=== PATIENT | female | born 1950 | race Caucasian/White ===

== ENCOUNTER 2023-09-10 16:56 | Emergency (ER) | payer MEDICARE, OTHER ==
[~2023-09-10] VITALS: Ht 157.5 cm; Wt 81.8 kg
[2023-09-10 17:11] VITALS: TEMP 98.2
[2023-09-10] MEDS ORDERED: LISI1TAB53 PO (17:11)
[2023-09-10] MEDS ORDERED: ATOR20TA65 PO (17:11)
[2023-09-10] MEDS ORDERED: COLC0.6C3 PO (17:11)
[2023-09-10] MEDS ORDERED: DEXL60CA6 PO (17:11)
[2023-09-10 17:44] LABS: BASOPHILS % (AUTO) 1.3 % (0.0-2.0); EOSINOPHILS % (AUTO) 0.7 % (1.0-6.0); HEMATOCRIT 38.4 % (36-46); HEMOGLOBIN 13.1 g/dL (12.0-16.0); LYMPHOCYTES # (AUTO) 1.6 K/uL (1.0-4.8); LYMPHOCYTES % (AUTO) 21.5 % (22.0-44.0); MEAN CORPUSCULAR HEMOGLOBIN 28.2 pg (26.0-34.0); MEAN CORPUSCULAR VOLUME 83 fL (80-100); MONOCYTES # (AUTO) 0.5 K/uL (0.1-1.0); MONOCYTES % (AUTO) 6.8 % (2.0-9.0); NEUTROPHILS # (AUTO) 5.3 K/uL (1.8-7.7); NEUTROPHILS % (AUTO) 69.7 % (40.0-70.0); PLATELET COUNT (AUTO) 334 K/uL (150-450); RED BLOOD CELL COUNT(AUTO) 4.64 MIL/uL (4.00-5.20); RED CELL DISTRIBUTION WIDTH 14.5 % (11.5-14.5); WHITE BLOOD COUNT (AUTO) 7.6 K/uL (4.5-11.0)
[2023-09-10 17:58] LABS: CALCIUM, TOTAL 9.5 mg/dL (8.8-10.5); CREATININE 0.92 mg/dL (0.60-1.30); POTASSIUM 4.1 mmol/L (3.5-5.1)
[2023-09-10 18:04] LABS: ALBUMIN 3.9 g/dL (3.4-5.0); BILIRUBIN,TOTAL 0.6 mg/dL (0.1-1.0); TOTAL PROTEIN, SERUM 7.4 g/dL (6.4-8.2)
[2023-09-10 21:08] VITALS: BP 189/100; PULSE 94; RESP 16
[2023-09-10] MEDS ORDERED: KETOROLAC TROMETHAMINE 60 MG/2 ML VIAL IM ONE (22:45)
[2023-09-11] MEDS ORDERED: IBUP-1492 PO (00:20)
[2023-09-11] MEDS ORDERED: HYDR-4723 PO (00:20)
[2023-09-11] MEDS ORDERED: OXYC-38 PO (01:01)
== END 2023-09-11 00:30 | disposition home or self-care (01) ==
LOC: EMS 16:58
DX: R20.2 Paresthesia of skin (principal); I10 Essential (primary) hypertension
CPT/HCPCS: 99285; 70450; 80053; 85025; 36415; 96372; J1885